=== PATIENT | female | born 1965 | race Caucasian/White ===

== ENCOUNTER 2017-05-03 09:35 | Inpatient (IN) | payer OTHER ==
[~2017-05-03] VITALS: Ht 172.7 cm; Wt 167.5 kg
[2017-05-03 10:53] LABS: BASOPHIL 0.2 % (0-2); EOSINOPHIL 2.6 % (0-5); HCT 32.6 % (37.0-47.0); HGB 10.7 g/dl (12.5-16.0); LYMPHOCYTE 13.6 % (15-48); MCH 32.6 pg (25.0-31.0); MCHC 32.8 g/dL (32.0-36.0); MCV 99.4 fL (78.0-100.0); MONOCYTE 9.1 % (0-12); MPV 10.5 fL (6.0-9.5); NEUTROPHIL 74.5 % (41-80); PLT 185 K/uL (150-400); RBC 3.28 M/uL (4.20-5.40); RDW 14.3 % (11.5-14.0); WBC 12.6 K/uL (4.0-10.5)
[2017-05-03 11:07] LABS: INR 1.21 (0.9-1.2); PROTHROMBIN TIME 14.9 SECONDS (11.7-14.0); PTT 34.2 SECONDS (23.2-31.4)
[2017-05-03 11:11] LABS: LACTIC ACID 1.8 mmol/L (0.5-2.2)
[2017-05-03 11:14] LABS: ALBUMIN 3.7 g/dL (3.5-5.0); BILIRUBIN - TOTAL 0.4 mg/dL (0.1-1.0); CREATININE 1.3 mg/dL (0.5-1.0); GLOBULIN (CALCULATION) 3.2 g/dL (2.2-4.2); POTASSIUM 4.4 mmol/L (3.5-5.1); TOTAL PROTEIN 6.9 g/dL (6.4-8.3)
[2017-05-03 11:38] LABS: BILIRUBIN NEGATIVE (NEGATIVE); BLOOD 2+ Ery/uL (NEGATIVE); COLOR YELLOW (YELLOW); GLUCOSE (U) NORMAL (NORMAL); KETONE (U) NEGATIVE (NEGATIVE); LEUKOCYTES NEGATIVE Leu/uL (NEGATIVE); NITRITE NEGATIVE (NEGATIVE); PROTEIN NEGATIVE (NEGATIVE); SPECIFIC GRAVITY 1.015 (1.001-1.030); UROBILINOGEN 0.2 mg/dL (0.2-1.0)
[2017-05-03 11:39] LABS: CLARITY HAZY (CLEAR)
[2017-05-03 11:40] LABS: SQUAMOUS EPITHELIAL CELLS 20-50; URINARY RBC RARE; URINARY WBC RARE
[2017-05-04 05:31] LABS: BASOPHIL 0.2 % (0-2); EOSINOPHIL 4.5 % (0-5); HCT 32.4 % (37.0-47.0); HGB 10.5 g/dl (12.5-16.0); LYMPHOCYTE 21.9 % (15-48); MCH 32.1 pg (25.0-31.0); MCHC 32.4 g/dL (32.0-36.0); MCV 99.1 fL (78.0-100.0); MPV 10.9 fL (6.0-9.5); NEUTROPHIL 62.4 % (41-80); PLT 214 K/uL (150-400); RBC 3.27 M/uL (4.20-5.40); RDW 14.2 % (11.5-14.0); RETICULOCYTE COUNT 1.7 % (1.0-2.0); WBC 9.9 K/uL (4.0-10.5)
[2017-05-04 06:16] LABS: FOLIC ACID (SERUM) > 20.0 ng/mL (4.4-31.0)
[2017-05-04 07:05] LABS: CREATININE 1.1 mg/dL (0.5-1.0); POTASSIUM 4.6 mmol/L (3.5-5.1)
[2017-05-04 07:25] LABS: C-REACTIVE PROTEIN 15.7 mg/dL (0.00-0.50)
[2017-05-05 06:08] LABS: BASOPHIL 0.3 % (0-2); EOSINOPHIL 5.9 % (0-5); HCT 29.6 % (37.0-47.0); HGB 9.6 g/dl (12.5-16.0); LYMPHOCYTE 21.8 % (15-48); MCH 32.2 pg (25.0-31.0); MCHC 32.4 g/dL (32.0-36.0); MCV 99.3 fL (78.0-100.0); MONOCYTE 10.8 % (0-12); MPV 10.3 fL (6.0-9.5); NEUTROPHIL 61.2 % (41-80); PLT 204 K/uL (150-400); RBC 2.98 M/uL (4.20-5.40); RDW 14.1 % (11.5-14.0); WBC 7.5 K/uL (4.0-10.5)
[2017-05-05 06:34] LABS: POTASSIUM 5.3 mmol/L (3.5-5.1)
[2017-05-06 04:40] LABS: HCT 33.5 % (37.0-47.0); HGB 10.7 g/dl (12.5-16.0); MCH 31.8 pg (25.0-31.0); MCHC 31.9 g/dL (32.0-36.0); MCV 99.7 fL (78.0-100.0); MPV 9.9 fL (6.0-9.5); RBC 3.36 M/uL (4.20-5.40); RDW 14.1 % (11.5-14.0); WBC 7.8 K/uL (4.0-10.5)
[2017-05-06 04:54] LABS: POTASSIUM 5.1 mmol/L (3.5-5.1)
[2017-05-06] MEDS ORDERED: CLEOCIN HCL150 MG PO (16:17)
[2017-05-06] MEDS ORDERED: FLORASTOR250 MG PO (16:17)
[2017-05-06] MEDS ORDERED: SINGULAIR10 MG PO (16:18)
[2017-05-06] MEDS ORDERED: VITAMIN D2000 UNI1 PO (16:18)
[2017-05-06] MEDS ORDERED: BACLOFEN 10MG T10 MG PO (16:18)
[2017-05-06] MEDS ORDERED: PERCOCET 10/321 EACH PO (16:18)
[2017-05-06] MEDS ORDERED: PRAVACHOL40 MG PO (16:18)
[2017-05-06] MEDS ORDERED: COZAAR50 MG PO (16:19)
[2017-05-06] MEDS ORDERED: LOPRESSOR25 MG PO (16:19)
[2017-05-06] MEDS ORDERED: ACID CONTROL150 MG PO (16:19)
[2017-05-06] MEDS ORDERED: ALLOPURINOL300 MG PO (16:19)
[2017-05-06] MEDS ORDERED: MICRO-K10 MEQ PO (16:20)
[2017-05-06] MEDS ORDERED: VENTOLIN HFA IN18 GM INH (16:20)
[2017-05-06] MEDS ORDERED: CETIRIZINE HCL10 M1 PO (16:20)
[2017-05-06] MEDS ORDERED: VICTOZA 2-0.6 MG/0.1 SC (16:20)
[2017-05-06] MEDS ORDERED: LASIX40 MG PO (16:20)
[2017-05-06] MEDS ORDERED: MOBIC15 MG PO (16:21)
[2017-05-06] MEDS ORDERED: ZOFRAN4 MG PO (16:21)
[2017-05-06] MEDS ORDERED: LYRICA75 MG PO (16:21)
[2017-05-06] MEDS ORDERED: PROBIOTIC1 EAC2 PO (16:21)
[2017-05-06] MEDS ORDERED: GLUCOPHAGE1000 MG PO (16:21)
[2017-05-06] MEDS ORDERED: COLACE100 MG PO (16:22)
== END 2017-05-06 17:57 | disposition home health service (06) | DRG 603 ==
LOC: FER 09:35 → FMS 12:17
PROVIDERS: Emergency Medicine; Internal Medicine Nephrology; ADMIT Internal Medicine
DX: L03.116 Cellulitis of left lower limb (principal); N17.9 Acute kidney failure, unspecified; Q87.40 Marfan syndrome, unspecified; Z68.43 Body mass index [BMI] 50.0-59.9, adult; E11.9 Type 2 diabetes mellitus without complications; D64.9 Anemia, unspecified; I10 Essential (primary) hypertension; G47.33 Obstructive sleep apnea (adult) (pediatric); E66.01 Morbid (severe) obesity due to excess calories; M19.90 Unspecified osteoarthritis, unspecified site; I87.2 Venous insufficiency (chronic) (peripheral); Z91.013 Allergy to seafood; Z88.2 Allergy status to sulfonamides
CPT/HCPCS: 36415; 71010; 80048; 80053; 80202; 81001; 82607; 82728; 82746; 82962; 83036; 83540; 83550; 83605; 84145; 85025; 85044; 85610; 85651; 85730; 86140; 87040; 87640; 87641; 87900; 93005; 93971; J1885; J3370

== ENCOUNTER 2021-03-29 19:36 | Emergency (ER) | payer OTHER ==
[~2021-03-29 19:36] MED LIST: ACETAMINOPHEN500 MG PO; ACID CONTROL150 MG PO; ACID REDUCER20 MG PO; ALLOPURINOL300 MG PO; ASCORBIC ACID500 MG PO; ATROVENT HFA12.9 GM INH; AVAPRO300 MG PO; BACLOFEN 10MG T10 MG PO; CELEBREX **OUT100 MG PO; CELECOXIB100 MG PO; CETIRIZINE HCL10 M1 PO; CLEOCIN HCL150 MG PO; COLACE100 MG PO; COZAAR50 MG PO; CYCLOBENZAPRINE10 MG PO; FLORASTOR250 MG PO; GLUCOPHAGE1000 MG PO; KLOR-CON M 1010 MEQ PO; LASIX40 MG PO; LEXAPRO 10MG TA10 MG PO; LOPRESSOR25 MG PO; LOPRESSOR50 MG PO; LYRICA75 MG PO; MELATONIN5 M2 PO; MELOXICAM15 MG PO; METFORMIN HCL500 MG PO; MICRO-K10 MEQ PO; MOBIC15 MG PO; OXYCODONE-ACET1 EAC1 PO; OZEMPIC1 MG/0.75 SC; PERCOCET 10-321 EACH PO; PERCOCET 10/321 EACH PO; PERCOCET 5-3251 EACH PO; PRAVACHOL40 MG PO; PROBIOTIC1 EAC2 PO; QMIIZ ODT7.5 MG PO; ROBITUSSIN W/COD5 ML PO; SINGULAIR10 MG PO; TESSALON PERLE100 MG PO; TIZANIDINE HCL4 MG PO; TOPAMAX50 MG PO; UROCIT-K10 MEQ PO; VENTOLIN HFA IN18 GM INH; VICTOZA 2-0.6 MG/0.1 SC; VITAMIN D2000 UNI1 PO; ZINC SULFATE220 M1 PO; ZOFRAN PO; ZOFRAN4 MG PO
[2021-04-24] MEDS ORDERED: OXYCODONE-ACET1 EAC1 PO (14:42)
[2021-07-08] MEDS ORDERED: OXYCODONE-ACET1 EAC1 PO (14:34)
== END 2021-03-29 21:15 | disposition home or self-care (01) ==
LOC: FER 19:36
DX: S90.31XA Contusion of right foot, initial encounter (principal); I87.8 Other specified disorders of veins; E11.9 Type 2 diabetes mellitus without complications; Z79.4 Long term (current) use of insulin; W20.8XXA Other cause of strike by thrown, projected or falling object, initial encounter; Y92.009 Unspecified place in unspecified non-institutional (private) residence as the place of occurrence of the external cause
CPT/HCPCS: 73630